=== PATIENT | male | born 1985 | race American Indian/Alaskan Native ===

== ENCOUNTER 2016-05-16 17:28 | Emergency (ER) | payer OTHER ==
[2016-05-16 22:28] VITALS: BP 125/86
--- NOTE | 2016-05-16 23:35 | Emergency Department Report ---
HPI - General Chief Complaint: Eye Problems Time Seen by Provider: 05/16/16 23:06 - HPI HPI: Patient here complaining of left eye pain irritation 3 days. Denies any injury. Denies any foreign body sensation. He said the pain comes and goes but is mostly itchy. He said his eyes were red and now it's going into his right eye. He reports the pain is 5 out of 10 in triage but to me he said he was not having any pain at present denies any visual disturbances. Patient said that he was in contact with someone with pink eye. ED Past Medical Hx - Past Medical History Previous Medical History?: Yes Additional medical history: vertigo, loss of hearing left ear - Surgical History Past Surgical History?: No - Family History Family history: hypertension - Social History Smoking Status: Current Every Day Smoker Substance Use Type: Marijuana - Medications Home Medications: Home Medications Medication Instructions Recorded Confirmed Last Taken Type Gentamicin 0.3% Ophth Soln 2 drops OP Q8H #1 bottle 05/17/16 Unknown Rx ED Review of Systems ROS: Stated complaint: LEFT EYE PAIN Other details as noted in HPI Comment: All other systems reviewed and negative Constitutional: denies: chills, fever Eyes: eye pain, eye discharge. denies: vision change ENT: denies: ear pain, throat pain, congestion Respiratory: no symptoms reported Cardiovascular: denies: chest pain, palpitations, edema, syncope Gastrointestinal: denies: nausea, vomiting Musculoskeletal: denies: back pain, arthralgia Skin: denies: rash Neurological: denies: headache Physical Exam - Physical Exam Vital Signs: Vital Signs 05/16/16 05/16/16 18:58 22:26 Temperature 99 F 98.6 F Pulse Rate 89 90 Respiratory 16 20 Rate Blood Pressure 149/89 Blood Pressure 125/86 [Right] O2 Sat by Pulse 96 98 Oximetry General: This is a 30-year-old male well-nourished well-developed in no acute distress. Physical Exam: Head: Normocephalic atraumatic Mouth: Moist, no pharyngeal exudate or erythema. Uvula is midline and oral airway is patent. No facial swelling. No peritonsillar abscesses. Neck: Supple, no C-spine tenderness, no tracheal deviation. Nontender to palpate. no adenopathy Ears: Bilateral TMs pearly soto.bilateral EAC without any redness swelling or drainage Eyes: Bilateral pupils equal and reactive to light, bilateral EOM intact. Bilateral sclera and conjunctiva with erythema and injection. Left is worse than the right eye Normal accommodation. Visual acuity 20/13 both eyes, 20/25 OD and 20/25 OS Nose: Mucosa moist, normal mucosa . Lungs:Clear to auscultate bilaterally no rhonchi wheezes or rales. Normal work of breathing extremity; No CCE. +2 pulses. No neurovascular compromise Cardiovascular: S1-S2, regular rate rhythm. No murmurs. Skin: clean Dry and intact no rash no lesions Psych: Normal mood and behavior ED Course Vital Signs 05/16/16 05/16/16 18:58 22:26 Temperature 99 F 98.6 F Pulse Rate 89 90 Respiratory 16 20 Rate Blood Pressure 149/89 Blood Pressure 125/86 [Right] O2 Sat by Pulse 96 98 Oximetry - Reevaluation(s) Reevaluation #1: 05/17/16 04:38 ED course uneventful ED Medical Decision Making - Medical Decision Making ED course: Patient here and diagnosed with acute conjunctivitis to both eyes. I discussed diagnosis with patient and treatment plan. She was understanding and discharged home with prescription for gentamicin ophthalmic. I discussed with him he needs to follow-up with ophthalmology in 2-3 days if he does not get any better. Critical care attestation.: If time is entered above; I have spent that time in minutes in the direct care of this critically ill patient, excluding procedure time. ED Disposition Clinical Impression: Conjunctivitis, both eyes Qualifiers: Conjunctivitis type: acute Acute conjunctivitis type: unspecified Qualified Code(s): H10.33 - Unspecified acute conjunctivitis, bilateral Disposition: DISCHARGED TO HOME OR SELFCARE Is pt being admited?: No Does the pt Need Aspirin: No Condition: Stable Instructions: Conjunctivitis (ED) Prescriptions: Gentamicin 0.3% Ophth Soln 2 drops OP Q8H #1 bottle Referrals: PRIMARY CARE, [Primary Care Provider] - 3-5 Days PADMA FAJARDO MD [Staff Physician] - 3-5 Days Forms: Work/School Release Form(ED)
[2016-05-17] MEDS ORDERED: MOTRIN ONE (00:49)
[2016-05-17] MEDS ORDERED: MOTRIN PO ONE (00:54)
== END 2016-05-17 01:26 | disposition home or self-care (01) ==
LOC: ED 17:28
DX: H10.33 Unspecified acute conjunctivitis, bilateral (principal); F12.90 Cannabis use, unspecified, uncomplicated; F17.200 Nicotine dependence, unspecified, uncomplicated
CPT/HCPCS: 99283